=== PATIENT | female | born 1995 | race Caucasian/White ===

== ENCOUNTER 2025-02-02 23:04 | Emergency (ER) | payer MEDICARE, MEDICAID ==
[~2025-02-02] VITALS: Ht 167.6 cm; Wt 52.3 kg
--- NOTE | 2025-02-02 23:28 | Physician Documentation ---
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 The patient was transferred from an outside hospital, where she presented with a dislocated prosthetic hip. They did attempts sedation with propofol, but were unable to reduce the hip. She was sent here in case she needs Orthopedic surgery. The patient denies any history of dislocation, this is her 1st time. She says she went for a long hike today, and then was stretching out her leg when it suddenly popped out. She still has sensation to her left foot. No other acute concerns. Medication Reconciliation Allergies: Coded Allergies: nickel (Verified Allergy, Unknown, 02/02/25) Review of Systems Musculoskeletal: Reports: joint pain Physical Exam Physical Exam General: This is a thin young female who is sitting on EMS gurney, awake and alert Heart: Regular rate and rhythm, normal-appearing peripheral perfusion including normal perfusion to the left foot Lungs: normal work of breathing, normal oxygen saturation on room air Extremities: Left lower extremity: The patient has obvious shortening and rotation. Significant pain with movement of the hip. Sensation grossly intact to light touch in the left foot Neuro: Alert and oriented Psychiatric: Calm and cooperative with exam Procedures Joint Reduction : Joint Reduction Site: Prosthetic left hip dislocation Reduction By: myself Conscious Sedation: Yes Medications/Dose: 90 mg of propofol Reduction Attempts: 1 Pre-Procedure NV Exam: within normal limits Post-Procedure NV Exam: within normal limits Post Reduction Film: joint reduced Tolerated Procedure Well?: yes, no complications Procedure Note Using pelvic traction, I was able to easily reduce the hip with traction. This attempt took a less than 1 minute. The patient tolerated this well. After the procedure she had normal sensation and strength to the left leg and her pain significantly improved. Moderate Sedation : Pulmonary Assessment: Unremarkable Neurological Assessment: Unremarkable Cardiovascular Assessment: Unremarkable Other Systems: Unremarkable Hx of sedation difficulty?: No Medications: see reconiliation form ASA Class: I-normal healthy Medication Used: Diprivan Staff Present: primary nurse, respiratory care practitioner Monitoring: echo technician, Spo2, patient on oxygen via N/C, suction ready, BVM ready Tolerated Procedure Well?: yes, no complications Duration of Procedure (min): 12 Procedure Note The patient was sedated with IV propofol, total of 90 mg was given. She tolerated this well, recovered rapidly. No complications. Progress Results/Orders Results/Orders Orders - KATHLEEN VERMA MD Hip, 1 View With Pelvis (02/03/25 ) Completed Orders - KATHLEEN VERMA MD Propofol Inj (Diprivan Inj) (02/02/25 23:35) Fentanyl/Pf (Fentanyl 0.05 Mg/Ml Syringe (02/03/25 00:05) Hip, 1 View With Pelvis (02/03/25 ) Ketorolac Trometh 15mg/Ml Vial (Toradol (02/03/25 02:20) Hydrocodone/Apap 5/325mg Tab ([place] 5/32 (02/03/25 02:20) Medications Received in ER Medications (Trade) Dose Ordered Sig/Dayna Route PRN Reason Start Time Stop Time Status Last Admin Dose Admin (fentaNYL 0.05 MG/ML syringe) 50 mcg ONCE ONCE IV 02/03/25 00:05 02/03/25 00:06 DC 02/03/25 00:11 50 MCG (Toradol injection) 15 mg ONCE ONCE IV 02/03/25 02:20 02/03/25 02:21 DC 02/03/25 02:28 15 MG ([place] 5/325mg tablet) 1 tab ONCE ONCE PO 02/03/25 02:20 02/03/25 02:21 DC 02/03/25 02:30 1 TAB Vital Signs 02/02/25 02/03/25 02/03/25 02/03/25 23:20 00:00 00:11 00:13 Temp 98.6 Pulse 66 80 74 Resp 16 16 16 16 B/P (MAP) 133/71 145/80 (101) 137/79 Pulse Ox 99 99 100 O2 Delivery Nasal Cannula O2 Flow Rate 0 2.0 02/03/25 02/03/25 02/03/25 02/03/25 00:23 00:25 00:37 00:52 Pulse 73 61 75 Resp 15 16 16 B/P (MAP) 118/75 (89) 129/76 (93) 130/66 (87) Pulse Ox 100 99 99 O2 Delivery Nasal Cannula Room Air Room Air O2 Flow Rate 2.0 0 0 02/03/25 02/03/25 02:28 02:30 Resp 16 16 Medical Decision Making Additional info obtained from: old records Findings I reviewed records from the outside hospital regarding her workup and treatment prior to transfer. Additional Comment The patient presents with a dislocated prosthetic hip. On arrival, I discussed the options of either a 2nd sedation and reduction attempt, versus orthopedic consult. After this shared decision-making conversation, she was in agreement with a 2nd attempt at reduction here in the emergency department. She was sedated with propofol and the hip was easily reduced. She was placed in a knee immobilizer. She recovered uneventfully. She will be discharged with a plan to follow up with her orthopedic surgeon in about a week. No indication for admis deidre at this time. Departure Time of Disposition: 02:38 Disposition: 01 HOME / SELF CARE / HOMELESS Impression: Primary Impression: Hip dislocation, left Condition: Improved Discharge Instructions: Closed Reduction for Prosthetic Hip Joint Dislocation, Care After Referrals: NO PRIMARY CARE PROVIDER (PCP) Education Educated: Patient Educated regarding: diagnosis, treatment Signature Scribe Signature: isma Attestation: KATHLEEN Rossi MD Feb 02, 2025 23:28
[2025-02-03] MEDS: fentaNYL/PF 50MCG/1 ML 2ML syringe IV ONE (00:11)
[2025-02-03] MEDS: propofol 10mg/ml 20ml vial IV ONE (00:17)
--- NOTE | 2025-02-03 01:04 | RADIOLOGY REPORT ---
EXAM: DI HIP, 1 VIEW WITH PELVIS CLINICAL HISTORY: POST REDUCTION COMPARISON: None TECHNIQUE: DI HIP, 1 VIEW WITH PELVIS FINDINGS/IMPRESSION: Prior left hip arthroplasty. Alignment appears unremarkable on this single image , though additional images may be obtained if there is clinical concern for appropriate alignment. No acute displaced periprosthetic fracture.
[2025-02-03] MEDS: ketorolac trometh 15mg/ml vial 15 MG/ML ML IV ONE (02:28)
[2025-02-03] MEDS: HYDROcodone/acetaminophen 5mg/325mg tablet PO ONE (02:30)
[2025-02-03 08:55] VITALS: BP 106/65; PULSE 89; RESP 15; TEMP 98.6; O2SAT 97
[2025-02-03] MEDS: ketorolac trometh 30MG/ML vial 30 MG/ML VIAL IV ONE (11:21)
== END 2025-02-03 11:30 | disposition home or self-care (01) ==
LOC: ER 23:05
DX: S73.005A Unspecified dislocation of left hip, initial encounter (principal); X50.3XXA Overexertion from repetitive movements, initial encounter; Y93.89 Activity, other specified; Y92.89 Other specified places as the place of occurrence of the external cause; Y99.8 Other external cause status
CPT/HCPCS: 27250; 73501; 96374; 96375; 96376; 99152; 99285; J1885; J3010